=== PATIENT | female | born 1965 | race Caucasian/White ===

== ENCOUNTER 2020-08-17 08:09 | Emergency (ER) | payer OTHER ==
[~2020-08-17] VITALS: Ht 165.1 cm; Wt 104.5 kg
--- NOTE | 2020-08-17 08:27 | REP ---
INDICATION: CHEST PAIN. COMPARISON: Comparison chest x-ray 02 September 2008. TECHNIQUE: Portable upright AP chest radiograph. FINDINGS: The lungs are well inflated and free of infiltrate. Pleural angles are sharp. Heart size is normal. Pulmonary vasculature is not increased. The thoracic aorta is somewhat tortuous. IMPRESSION: No active disease. <Electronically signed by Nato Thorpe > 08/17/20 0891
[2020-08-17] MEDS ORDERED: IBUP80TA (09:10)
[2020-08-17] MEDS ORDERED: LOSA25TA14 (09:10)
[2020-08-17 09:16] LABS: BASO # 0.1 10^3/uL (0.0-0.2); EOS # 0.3 10^3/uL (0.0-0.5); EOS % 5.3 % (0.0-3.0); LYMPH # 1.4 10^3/uL (1.5-5.0); LYMPH % 21.7 % (24.0-44.0); MEAN CORPUSCULAR HEMOGLOBIN 29.5 pg (27.0-33.0); MEAN CORPUSCULAR HGB CONC 32.5 g/dl (32.0-36.5); MEAN CORPUSCULAR VOLUME 90.9 fl (80.0-96.0); MONO # 0.5 10^3/uL (0.0-0.8); MONO % 7.9 % (0.0-5.0); NEUTROPHILS # 3.9 10^3/uL (1.5-8.5); NEUTROPHILS % 62.8 % (36.0-66.0); PLATELET COUNT, AUTOMATED 182 10^3/uL (150-450); WHITE BLOOD COUNT 6.2 10^3/uL (4.0-10.0)
[2020-08-17 09:28] LABS: INR 0.92; PARTIAL THROMBOPLASTIN TIME 36.1 SECONDS (24.2-38.5); PROTHROMBIN TIME 12.6 SECONDS (12.5-14.3)
[2020-08-17 09:51] LABS: ALBUMIN 3.7 GM/DL (3.2-5.2); ALT/SGPT 34 U/L (12-78); BILIRUBIN,DIRECT 0.1 MG/DL (0.0-0.2); BILIRUBIN,TOTAL 0.7 MG/DL (0.2-1.0); BLOOD UREA NITROGEN 14 MG/DL (7-18); CALCIUM LEVEL 8.9 MG/DL (8.5-10.1); CARBON DIOXIDE LEVEL 26 MEQ/L (21-32); CHLORIDE LEVEL 108 MEQ/L (98-107); CK-MB VALUE MASS < 1.0 NG/ML (<3.6); CPK CREATINE PHOSPHOKINASE 216 U/L (26-192); CREATININE FOR GFR 0.89 MG/DL (0.55-1.30); FREE T4 0.82 NG/DL (0.76-1.46); GLOMERULAR FILTRATION RATE > 60.0 (>51); GLUCOSE, FASTING 91 MG/DL (70-100); LIPASE 92 U/L (73-393); MB/CK RELATIVE INDEX 0.46 (< OR =4); POTASSIUM SERUM 5.5 MEQ/L (3.5-5.1); SODIUM LEVEL 140 MEQ/L (136-145); TOTAL PROTEIN 7.4 GM/DL (6.4-8.2); TROPONIN I < 0.02 NG/ML (< 0.10)
[2020-08-17] MEDS ORDERED: ISOVUE-370 76% 100ML VIAL As Ordered ONE (13:08)
--- NOTE | 2020-08-17 13:45 | REP ---
INDICATION: chest pain. COMPARISON: Comparison CT study 31 July 2008.. TECHNIQUE: Contrast dose: 75 ML of Isovue [address] technique: Helical scanning is acquired and overlapping 1.5 mm and contiguous 3 mm axial images are reformatted. In addition, maximum intensity projection and multiplanar re-formation images are generated in sagittal and coronal imaging projections. FINDINGS: There is good opacification in the pulmonary arterial tree. There is no evidence of vessel cut off or filling defect to suggest pulmonary embolus. Homogeneous opacity is seen in the thoracic aorta. There is no evidence of aneurysm or dissection. Lung window settings demonstrate no evidence of infiltrate, atelectasis or mass. There is a granulomatous calcification in the right lower lobe. No significant pulmonary nodule is appreciated. There is no evidence of pleural effusion or pericardial effusion. No hilar or mediastinal mass or adenopathy is observed. Incidental note is made of a normal variant at the arch in that the left vertebral artery takes a direct aortic origin In the upper abdomen, normal adrenal glands are seen. There is a small subcentimeter cyst in the liver. The visualized upper abdominal structures are otherwise unremarkable. No bony destructive lesion is seen. IMPRESSION: No CT evidence of pulmonary embolus. No active cardiopulmonary disease. <Electronically signed by Nato Thorpe > 08/17/20 [id number]
[2020-08-17 14:45] LABS: CK-MB VALUE MASS < 1.0 NG/ML (<3.6); CPK CREATINE PHOSPHOKINASE 113 U/L (26-192); MB/CK RELATIVE INDEX 0.88 (< OR =4); TROPONIN I < 0.02 NG/ML (< 0.10)
[2020-08-17 15:00] VITALS: BP 161/92
[2020-08-17] MEDS ORDERED: SUCR1TA PO (15:14)
[2020-08-17] MEDS ORDERED: OMEP40CA97 PO (15:14)
--- NOTE | 2020-08-18 08:46 | ECGEPIP ---
[facility] - ED Test Date: 2020-08-17 Pat Name: ANDREW KABA Department: Room: - Gender: Female Unix Manager: : 1965 Requested By: MAYUR Vizcarra Order Number: [id number] Reading MD: Janine Chun Measurements Intervals [place] Rate: 74 P: 16 VT: 111 QRS: 1 QRSD: 84 T: 3 QT: 367 QTc: 409 Interpretive Statements SINUS RHYTHM WITH SHORT VT INTERVAL DECREASED RATE 09/02/15 Electronically Signed on 08-18-2020 8:46:08 EST by Janine Chun
--- NOTE | 2020-08-18 08:50 | ECGEPIP ---
[facility] - ED Test Date: 2020-08-17 Pat Name: ANDREW KABA Department: Room: - Gender: Female Transporter Radiology: : 1965 Requested By: MAYUR Vizcarra Order Number: [id number] Reading MD: Janine Chun Measurements Intervals [place] Rate: 70 P: 24 AR: 137 QRS: 7 QRSD: 90 T: 8 QT: 394 QTc: 427 Interpretive Statements SINUS RHYTHM SIMILAR 08/17/20 Electronically Signed on 08-18-2020 8:50:39 EST by Janine Chun
== END 2020-08-17 15:38 | disposition home or self-care (01) ==
LOC: M ED 08:09
DX: R07.89 Other chest pain (principal); I10 Essential (primary) hypertension; J30.89 Other allergic rhinitis
CPT/HCPCS: 71045; 71275; 80048; 80076; 82550; 82553; 83690; 84439; 84443; 84484; 85025; 85610; 85730; 93005; 93041; 94760; 99285; Q9967

== ENCOUNTER 2021-03-01 08:24 | Emergency (ER) | payer OTHER ==
[~2021-03-01] VITALS: Ht 165.1 cm; Wt 105.3 kg
[~2021-03-01 08:24] MED LIST: IBUP80TA; LOSA25TA14; OMEP40CA4 PO; SUCR1TA PO
--- NOTE | 2021-03-01 10:24 | REP ---
INDICATION: R/O DVT. COMPARISON: None. TECHNIQUE: Multiple ultrasonographic images of the deep venous structures of the right lower extremity were obtained from the inguinal ligament to the ankle. Venous compression techniques, color doppler imaging, and augmentation techniques were also obtained where appropriate. As per the ACR guidelines the anterior tibial vein can not be effectively evaluated. Only compression techniques in the calf on the peroneal and posterior tibial veins was attempted/performed. FINDINGS: There is no abnormal echogenic material seen within any of the visualized deep venous structures that would suggest acute thrombosis. Coaptation is unremarkable throughout. Doppler interrogation shows an expected response to respiratory variability and augmentation in the thigh. Compression techniques in the calf were unobtainable. The color flow images show what appears to be a normal vascular pattern throughout the thigh. IMPRESSION: There is no ultrasonographic evidence of deep venous thrombosis involving any of the visualized deep venous structures of the right lower extremity as described above. Due to technical parameters calf vein DVT can not be ruled out. <Electronically signed by Dany Alexander > 03/01/21 6596
[2021-03-01 11:04] VITALS: BP 136/91
== END 2021-03-01 11:18 | disposition home or self-care (01) ==
LOC: M ED 08:24
DX: M25.561 Pain in right knee (principal); M79.661 Pain in right lower leg; I10 Essential (primary) hypertension; K21.9 Gastro-esophageal reflux disease without esophagitis; R93.89 Abnormal findings on diagnostic imaging of other specified body structures

== ENCOUNTER 2021-03-09 12:28 | Day surgery (SDC) | payer OTHER ==
[~2021-03-09] VITALS: Ht 165.1 cm; Wt 105.6 kg
[~2021-03-09 12:28] MED LIST changes: +ACETAMINOPHEN *IV* 1,000 MG IV ONE; +LR 1,000 ML IV ONE
[2021-03-09 13:21] LABS: HEMATOCRIT 43.4 % (36.0-47.0); HEMOGLOBIN 14.2 g/dl (12.0-15.5); MEAN CORPUSCULAR HEMOGLOBIN 29.5 pg (27.0-33.0); MEAN CORPUSCULAR HGB CONC 32.7 g/dl (32.0-36.5); PLATELET COUNT, AUTOMATED 190 10^3/uL (150-450); RED BLOOD COUNT 4.82 10^6/uL (4.00-5.40); WHITE BLOOD COUNT 6.3 10^3/uL (4.0-10.0)
[2021-03-09 13:46] LABS: ALBUMIN 4.2 GM/DL (3.2-5.2); ALT/SGPT 38 U/L (12-78); BLOOD UREA NITROGEN 10 MG/DL (7-18); CALCIUM LEVEL 9.6 MG/DL (8.5-10.1); CARBON DIOXIDE LEVEL 28 MEQ/L (21-32); CHLORIDE LEVEL 108 MEQ/L (98-107); CREATININE FOR GFR 0.87 MG/DL (0.55-1.30); GLOMERULAR FILTRATION RATE > 60.0 (>51); GLUCOSE, FASTING 87 MG/DL (70-100); POTASSIUM SERUM 4.4 MEQ/L (3.5-5.1); SODIUM LEVEL 140 MEQ/L (136-145)
[2021-03-09] MEDS ORDERED: LIDOCAINE 2% 100MG/5ML SDV (FOR ANES.) As Ordered ONE (14:28)
[2021-03-09] MEDS ORDERED: KETOROLAC 60MG 2ML VIAL As Ordered ONE (14:28)
[2021-03-09] MEDS ORDERED: METOCLOPRAMIDE INJ 10MG/2ML VIAL (J2765 PER 1) As Ordered ONE (14:28)
[2021-03-09] MEDS ORDERED: fentaNYL 100 MCG/2 ML INJECTION (J3010) As Ordered ONE ×3 (14:28→16:27)
[2021-03-09] MEDS ORDERED: propofoL 200 MG/20 ML VIAL As Ordered ONE (14:28)
[2021-03-09] MEDS ORDERED: MIDAZOLAM INJ 2MG/2ML VIAL (J2250 PER 1MG) As Ordered ONE (14:28)
[2021-03-09] MEDS ORDERED: dexameTHASONE 4 MG/ML 1ML VIAL (J1100 PER 1MG) As Ordered ONE (14:28)
[2021-03-09] MEDS ORDERED: ONDANSETRON 4MG/2ML VIAL As Ordered ONE (14:28)
[2021-03-09] MEDS ORDERED: SILVER NITRATE APPLICATOR As Ordered ONE (14:42)
[2021-03-09] MEDS ORDERED: LIDOCAINE 1% SDV 30ML VIAL As Ordered ONE (14:42)
--- NOTE | 2021-03-09 16:03 | ROOPDOC ---
[facility] Report Of Operation Report of Operation DATE OF PROCEDURE: 03/09/21 PREPROCEDURE DIAGNOSES: abnormal uterine bleeding, vulvar pruritis POSTPROCEDURE DIAGNOSES: abnormal uterine bleeding, cervical polyps, vulvar puritis PROCEDURE PERFORMED: diagnostic hysteroscopy, dilation and curettage, cervical polypectomy, vulvar biopsy SURGEON: Obie Rawls DO MAIL HANDLERS SUPERVISOR: none ANESTHESIA: LMA ESTIMATED BLOOD LOSS: Approximately 40 mL. COMPLICATIONS: none REMARKS: none FINDINGS: hysteroscopy performed revealed scarred cavity, small endometrial polyps were removed gently with curette, vulva had lacy appearance and biopsy was taken at approx 7 o clock with 4mm punch SPECIMENS REMOVED: vulvar biopsy, endometrial curettings PROCEDURE NOTE: The risks, benefits, and alternatives of the procedure were discussed and written consent obtained. The patient was taken to the OR and anesthesia performed. She was positioned in low lithotomy with her arms out. The vagina and perineum were prepped and draped in a sterile fashion. The bladder was drained. A final time out was performed. A speculum was placed and the anterior lip of the cervix grasped with a single tooth tenaculum. The cervix was dilated to 16F with hanks dilators. Hysteroscopy was performed with the myosure scope. The uterine cavity was circumfrentially scarred. The scope was removed and small polyps were noted near the external cervical os. Endometrial curettings obtained and the polyps gently removed with the curette. The polyp bed required a figure of 8 with 0-vicryl and monsels for hemostasis. Silver nitrate was used for hemostasis at the tenaculum sites. The area of the vulva at 7 o clock was identified and a 4mm punch biopsy obtained. The defect was secured with o-vicryl. The patient tolerated the procedure well. There were no complications. The sponge, lap, and needle counts were correct. OBIE RAWLS DO Mar 09, 2021 16:03
[2021-03-09] MEDS: fentaNYL 100 MCG/2 ML INJECTION (J3010) IV PRN ×5 (16:11→16:40)
[2021-03-09] MEDS ORDERED: ONDANSETRON 4MG/2ML VIAL IV PRN (16:35)
[2021-03-09] MEDS ORDERED: METOCLOPRAMIDE INJ 10MG/2ML VIAL (J2765 PER 1) IV PRN (16:35)
[2021-03-09] MEDS ORDERED: MEPERIDINE INJ 25 MG/ML VIAL (J2175) IV PRN (16:35)
[2021-03-09] MEDS ORDERED: LR 1,000 ML IV SCH (16:35)
[2021-03-09] MEDS ORDERED: oxyCODONE 5MG TAB PO PRN ×2 (16:35→16:40)
[2021-03-09 18:05] VITALS: BP 151/88
[2021-03-09] MEDS ORDERED: ACETAMINOPHEN 500 MG TAB PO SCH (22:00)
[2021-03-09] MEDS ORDERED: IBUPROFEN 800 MG TAB PO SCH (22:00)
== END 2021-03-09 18:09 | disposition home or self-care (01) ==
LOC: M SDC 12:28
PROVIDERS: ATTEND Obstetrics & Gynecology
DX: N84.0 Polyp of corpus uteri (principal); L29.2 Pruritus vulvae; I10 Essential (primary) hypertension; K21.9 Gastro-esophageal reflux disease without esophagitis; G43.909 Migraine, unspecified, not intractable, without status migrainosus; N76.0 Acute vaginitis; M79.604 Pain in right leg; G47.39 Other sleep apnea; E66.9 Obesity, unspecified; Z68.38 Body mass index [BMI] 38.0-38.9, adult; Z79.899 Other long term (current) drug therapy
CPT/HCPCS: 36415; 56605; 58558; 80053; 81025; 85027; 86850; 86900; 86901; 88305; J1100; J1885; J2250; J2405; J2765; J3010

== ENCOUNTER 2021-04-02 15:55 | Emergency (ER) | payer OTHER ==
[~2021-04-02] VITALS: Ht 165.1 cm; Wt 104.5 kg
[2021-04-02 15:55] VITALS: BP 167/99
[~2021-04-02 15:55] MED LIST changes: -ACETAMINOPHEN *IV* 1,000 MG IV ONE; -LR 1,000 ML IV ONE
--- NOTE | 2021-04-02 16:52 | REP ---
INDICATION: fall COMPARISON: None TECHNIQUE: Five views FINDINGS: The compartments are symmetric and well maintained. There is no acute fracture, dislocation, or subluxation IMPRESSION: Within normal limits. <Electronically signed by Dany Alexander > 04/02/21 1997
[2021-04-02] MEDS ORDERED: NORCO 5/325MG TABLET (BULK FOR ED) PO ONE (21:10)
[2021-04-02] MEDS ORDERED: HYDR-3713 PO (21:21)
== END 2021-04-02 22:20 | disposition home or self-care (01) ==
LOC: M ED 15:55
DX: M23.91 Unspecified internal derangement of right knee (principal); I10 Essential (primary) hypertension; K21.9 Gastro-esophageal reflux disease without esophagitis; Z79.899 Other long term (current) drug therapy

== ENCOUNTER → 2021-04-16 | Outpatient (CLI) | payer OTHER ==
[~2021-04-16] MED LIST changes: +HYDR-3713 PO
--- NOTE | 2021-04-16 15:47 | REP ---
INDICATION: RT KNEE PAIN. COMPARISON: None. TECHNIQUE: Sagittal spin-echo proton density, T2 STIR and T2 FLASH. Coronal spin-echo proton density and fat suppressed proton density. Axial fat suppressed proton density. FINDINGS: The anterior and posterior horns of the lateral meniscus are within normal limits. There is grade 1 signal change seen in the periphery of the posterior horn of the medial meniscus. The anterior horn is unremarkable. The anterior and posterior cruciate ligaments are intact. The quadriceps and patellar tendons are intact. The medial and lateral collateral ligaments are intact. The medial and lateral patellar retinacula are intact. There is advanced thinning and irregularity of the patellar articular cartilage with more mild cartilaginous thinning involving the trochlear groove and both medial and lateral compartments. There is no significant joint effusion. There is no Mace's cyst. Seen in the subchondral marrow of the medial patellar facet there is 7 mm sized focus of T2 hyper signal. 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 There is a focus of patellar subchondral edema as described above likely secondary to repeated micro trauma. <Electronically signed by Dany Alexander > 04/16/21 1820
== END ==
LOC: M PLAIMG 13:01
PROVIDERS: ATTEND Family Medicine
DX: M22.41 Chondromalacia patellae, right knee (principal)

== ENCOUNTER 2021-05-10 11:04 | Day surgery (SDC) | payer OTHER ==
[~2021-05-10] VITALS: Ht 165.1 cm; Wt 104.3 kg
[~2021-05-10 11:04] MED LIST changes: +NS 1,000 ML IV ONE
--- OUTSIDE RECORDS SUMMARY | 2021-05-10 11:14 | CCD | Continuity of Care Document ---
Author Author Joan [facility] Organization Unknown Address [address], [address] [place] [address] Phone [phone] Care Team Providers Care Resource Director Name Role Phone Brien Almodovar AUTM [phone] Obie Barros AUTM [phone] Isidoro Magana M.D. AUTM [phone] Problems Active Problems Provider Date Essential hypertension Ciara Burnett D.O. Onset: 3 Social History Type Date Description Comments Sex Unknown ETOH Use 3 A Month Tobacco Use Start: Unknown Patient has never smoked Allergies, Adverse Reactions, Alerts Description No Known Drug Allergies Medications Active Medications SIG Qnty Indications Ordering Provide r Date Suprep Bowel Prep Kit 17.5-3.13-1.6GM/177ML Solution take per doctor's bowel prep instructions. 354ml Z12.1 1 Itz Bolanos MD 03/30/[address] take 4 tabs by mouth prior to procedure per instructions. 4tabs Z12.11 Itz Bolanos MD 03/30/2021 Losartan Potassium 25mg Tablets 1 by mouth every day Unknown Ibuprofen 800mg Tablets prn Unknown Preservision Areds 2 Areds 2 Capsu les Daily Unknown Immunizations Description No Information Available Vital Signs Date Vital Result Comment 03/30/2021 8:55am BP Systolic 138 mmHg BP Diastolic 88 mmHg Height 65 inches 5'5" Weight 230.00 lb BMI (Body Mass Index) 38.3 kg/m2 [place] Body Weight 125 lb Weight 104.328 kg BSA (Body Surface Area) 2.10 m2 10/26/2012 2:36pm BP Systolic 130 mmHg BP Diastolic 70 mmHg Height 65 inches 5'5" [place] Body Weight 125 lb Results Description No Information Available Procedures Description No Information Available Medical Devices Description No Information Available Encounters Description No Information Available Assessments Date Code Description Provider 03/30/2021 Z12.11 Encounter for screening for ernie gnant neoplasm of colon Camila LouisYUNI 03/30/2021 Z86.010 Personal history of colonic poly ps Camila CoreasYUNI colunga 03/30/2021 Z80.0 Family history of malignant neop lasm of digestive organs Camila Rangel YUNI Louis Plan of Treatment 03/30/2021 - Camila CoreasdantenilamYUNI* Z12.11 Encounter for screening for malignant neoplasm of colon * Z86.010 Personal history of colonic polyps * Z80.0 Family history of malignant neoplasm of digestive organs * * New Medication:* Suprep Bowel Prep Kit 17.5-3.13-1.6 GM/177ML * Dulcolax 5 mg * New Orders:* Colonoscopy, Ordered: 03/30/21 * Comments:* Will arrange for colonoscopy. Reviewed risks and benefits of the procedure, as well as other options, with the patient. Bowel prep procedure was discussed with patient, as well as risks and side effects associated with the bowel prep. Patient verbalized understanding of all of the above and is in agreement to proceed. Patient will seek medical attention for any acute changes. Will monitor. * Follow up:* As scheduled, sooner if needed. Functional Status Description No Information Available Mental Status Description No Information Available Referrals Refer to Reason for Referral Status Appt Date Mau Kelly M.D. COLO SCREENING 1 NEW 01/26 T O 07/25, 3 EST 01/26/21 TO 01/26/22 Scheduled 03/30/2021 [facility] [address], [place] [id number] [phone]
--- OUTSIDE RECORDS SUMMARY | 2021-05-10 11:14 | CCD | Continuity of Care Document ---
Author Author Joan BOOKER M.D. Organization Unknown Address [address], [place] [address] Phone [phone] Care Team Providers Care Capability Lead Name Role Phone Dany Julien M.D Unavailable Problems Active Problems Provider Date Allergic rhinitis due to house dust mite Martín Booker M.D. Onset: 06/13/2019 Note: 4+ reaction to dust mites on intra dermal test completed in 2016 Allergic rhinitis due to animal dander O nset: 08/01/2016 Note: 2+ reaction to cat dander on intra dermal test completed in 2017. Essential hypertension Martín Booker M.D. Onset: 11/2018 Social History Type Date Description Comments Sex Unknown Tobacco Use Reviewed: 08/26/20 Patient has never smoked Smoking Status Reviewed: 08/26/20 Patient has never smoked Allergies, Adverse Reactions, Alerts Description No Known Drug Allergies Medications Active Medications SIG Qnty Indications Ordering Provide r Date Loratadine 10mg Tablets take 1 tablet (10 mg) by oral route once daily for 90 days Unknown 12/01/2016 Ibuprofen 800mg Tablets Ta ke as needed Mark Coello DO Losartan Potassium 25mg Tablets Take 1 tablet once daily Isidoro Magana MD Clotrimazole 1% Cream Apply t Camila Lee Fluticasone Propionate 50mcg/Act Suspension spray 2 sprays (100 mcg) in each nostril by intranasal route once daily in the evening Unknown Immunizations Description No Information Available Vital Signs Date Vital Result Comment 08/26/2020 2:14pm Weight 230.00 lb Height 65 inches 5'5" Heart Rate 79 /min Respiratory Rate 18 /min BP Systolic 136 mmHg BP Diastolic 87 mmHg BMI (Body Mass Index) 38.3 kg/m2 06/13/2019 1:08pm Height 65 inches 5'5" Heart Rate 93 /min Respiratory Rate 18 /min BP Systolic 122 mmHg BP Diastolic 82 mmHg Results Description No Information Available Procedures Date Code Description Status 04/07/2021 41686 Allergy Antigens Single Or Multi ple Completed 03/26/2021 86626 Allergy Antigens Single Or Multi ple Completed 10/08/2020 87732 Allergy Antigens Single Or Multi ple Completed Medical Devices Description No Information Available Encounters Description No Information Available Assessments Date Code Description Provider 04/07/2021 J30.81 Allergic rhinitis due to animal (cat) (dog) hair and dander Martín Booker M.D. 04/07/2021 J30.89 Other allergic rhinitis Martín Booker M.D. Plan of Treatment Future Appointment(s):* 08/26/2021 11:00 am - Martín Booker M.D. at Main Office 08/26/2020 - Martín Booker M.D.* J30.89 Allergic rhinitis due to dust mites.* Recommendations:* Effective allergen avoidance measures were reviewed and recommended. The patient should continue on maintenance allergen immunotherapy as per protocol. The risks and benefits associated with allergen IT were reviewed and discussed. If her rhinitis symptoms become more persistent she may consider to restart the Flonase nasal spray which should be used on a consistent, daily basis to be effective. She may take oral antihistamine as needed for itching and/or sneezing and on days she gets her allergy injections. * J30.81 Allergic rhinitis due to animal (cat) hair and dander* Recommendations: * Effective allergen avoidance measures reviewed and recommended. See additional recommendations above. * All * Follow up:* 12 months. Sooner if needed. Functional Status Description No Information Available Mental Status Description No Information Available Referrals Description No Information Available
--- OUTSIDE RECORDS SUMMARY | 2021-05-10 11:14 | CCD | Continuity of Care Document ---
Author Author Joan GARZA Organization Unknown Address [address] [place] [address] [place] [address] Phone [phone] Care Team Providers Care Trailer Tank Truck Driver Name Role Phone Blaine Patterson MD AUTM Unavailable [facility] AUTM [phone] Problems Description No Information Available Social History Type Date Description Comments Sex Unknown Allergies and adverse reactions Description No Information Available Medications Description No Information Available Immunizations Description No Information Available Vital Signs Description No Information Available Results Description No Information Available Procedures Description No Information Available Medical Devices Description No Information Available Encounters Description No Information Available Assessments Date Code Description Provider 04/22/2021 Z20.828 Contact with and (watt spected) exposure to other viral communicable diseases Jose Carlos Quevedo Plan of Treatment No Information Available Functional Status Description No Information Available Mental Status Description No Information Available Referrals Refer to Reason for Referral Status Appt Date Julio Garza PA Created [id number] [place] [address] [phone]
--- OUTSIDE RECORDS SUMMARY | 2021-05-10 11:14 | CCD | Continuity of Care Document ---
Author Author Joan BOOKER M.D. Organization Unknown Address [address], [place] [address] Phone [phone] Care Team Providers Care Environmental Health Inspector Name Role Phone Dany Julien M.D Unavailable Problems Active Problems Provider Date Allergic rhinitis due to house dust mite Martín Booker M.D. Onset: 06/13/2019 Note: 4+ reaction to dust mites on intra dermal test completed in 2016 Allergic rhinitis due to animal dander O nset: 08/01/2016 Note: 2+ reaction to cat dander on intra dermal test completed in 2016. Essential hypertension Martín Booker M.D. Onset: 11/2018 [...] Information Available Procedures Date Code Description Status 03/26/2021 29116 Allergy Antigens Single Or Multi ple Completed 10/08/2020 84879 Allergy Antigens Single Or Multi ple Completed Medical Devices Description No Information Available Encounters Description No Information Available Assessments Date Code Description Provider 03/26/2021 J30.81 Allergic rhinitis due to animal (cat) (dog) hair and dander Martín Booker M.D. 03/26/2021 J30.89 Other allergic rhinitis Martín Booker M.D. [...]
--- OUTSIDE RECORDS SUMMARY | 2021-05-10 11:14 | CCD | Continuity of Care Document ---
Author Author oJan GARZA Organization Unknown Address [address] [place] [address] [place] [address] Phone [phone] Care Team Providers Care Program Director Scouting Name Role Phone Blaine Patterson MD AUTM Unavailable [facility] AUTM [phone] Problems Description No Information Available Social History [...] Status Appt Date Julio Garza PA Created [id number] [place] [address] [phone]
--- OUTSIDE RECORDS SUMMARY | 2021-05-10 11:14 | CCD | Continuity of Care Document ---
Author Author Joan GARZA Organization Unknown Address [address] [place] [address] [place] [address] Phone [phone] Care Team Providers Care Citrus Peeler Name Role Phone Blaine Patterson MD AUTM Unavailable [facility] AUTM [phone] Problems Description No Information Available Social History [...] Status Appt Date Julio Garza PA Created [id number] [place] [address] [phone]
--- OUTSIDE RECORDS SUMMARY | 2021-05-10 11:14 | CCD ---
Author Author [facility] Organization [facility] Address Unknown Phone Unavailable Care Team Providers Care Insurance Claims Clerk Name Role Phone Maring, Bala PA Unavailable Unavailable Maring, Bala PA Unavailable Unavailable Maring, Bala PA Unavailable Unavailable Maring, Bala PA Unavailable Unavailable Maring, Bala PA Unavailable Unavailable Maring, Bala PA Unavailable Unavailable Maring, Bala PA Unavailable Unavailable Maring, Bala PA Unavailable Unavailable Maring, Bala PA Unavailable Unavailable Maring, Bala PA Unavailable Unavailable Maring, Baal PA Unavailable Unavailable Maring, Bala PA Unavailable Unavailable Maring, Bala PA Unavailable Unavailable Maring, Bala PA Unavailable Unavailable Maring, Bala PA Unavailable Unavailable Maring, Bala PA Unavailable Unavailable ISRA BOOKER MD Unavailable Unavailable ISRA BOOKER MD Unavailable Unavailable ISRA BOOKER MD Unavailable Unavailable ISRA BOOKER MD Unavailable Unavailable ISRA BOOKER MD Unavailable Unavailable ISRA BOOKER MD Unavailable Unavailable ISRA BOOKER MD Unavailable Unavailable ISRA BOOKER MD Unavailable Unavailable ISRA BOOKER MD Unavailable Unavailable ISRA BOOKER MD Unavailable Unavailable ISRA BOOKER MD Unavailable Unavailable ISRA BOOKER MD Unavailable Unavailable ISRA BOOKER MD Unavailable Unavailable ISRA BOOKER MD Unavailable Unavailable ISRA BOOKER MD Unavailable Unavailable ISRA BOOKER MD Unavailable Unavailable ISRA BOOKER MD Unavailable Unavailable CHROSTOWSKIISRA MD Unavailable Unavailable CHROSTOWSKIISRA MD Unavailable Unavailable CHROSTOWSKIOTISISRA MD Unavailable Unavailable CHROSTOWSKIOTISISRA MD Unavailable Unavailable CHROSTOWSKI, ISRA MD Unavailable Unavailable CHROSTOWSKIOTISISRA MD Unavailable Unavailable CHROSTOWSKI, ISRA MD Unavailable Unavailable CHROSTOWSKI, ISRA MD Unavailable Unavailable CHROSTOWSKI, ISRA MD Unavailable Unavailable CHROSTOWSKI, ISRA MD Unavailable Unavailable CHROSTOWSKI, ISRA MD Unavailable Unavailable CHROSTOWSKI, ISRA MD Unavailable Unavailable CHROSTOWSKI, ISRA MD Unavailable Unavailable CHROSTOWSKI, ISRA MD Unavailable Unavailable CHROSTOWSKI, ISRA MD Unavailable Unavailable CHROSTOWSKI, ISRA MD Unavailable Unavailable CHROSTOWSKI, ISRA MD Unavailable Unavailable CHROSTOWSKI, ISRA MD Unavailable Unavailable CHROSTOWSKI, ISRA MD Unavailable Unavailable CHROSTOWSKI, ISRA MD Unavailable Unavailable CHROSTOWSKI, ISRA MD Unavailable Unavailable CHROSTOWSKI, ISRA MD Unavailable Unavailable Hai GARCIA Unavailable Unavailable Blaine Lzoano Unavailable [phone] Blaine Lozano Unavailable [phone] MartaBlaine Unavailable [phone] MartaEdilmaon Unavailable [phone] Marta Blaine Unavailable [phone] MartaEdilmaon Unavailable [phone] Lei Addison MD Unavailable Unavailable Lei Addison MD Unavailable Unavailable Lei Addison MD Unavailable Unavailable Lei Addison MD Unavailable Unavailable Lei Addison MD Unavailable Unavailable Lei Addison MD Unavailable Unavailable Lei Addison MD Unavailable Unavailable Lei Addison MD Unavailable Unavailable Lei Addison MD Unavailable Unavailable Lei Addison MD Unavailable Unavailable Lei Addison MD Unavailable Unavailable Lei Addison MD Unavailable Unavailable Lei Addison MD Unavailable Unavailable Lei Addison MD Unavailable Unavailable Lei Addison MD Unavailable Unavailable Lei Addison MD Unavailable Unavailable Lei Addison MD Unavailable Unavailable Lei Addison MD Unavailable Unavailable Lei Addison MD Unavailable Unavailable Lei Addison MD Unavailable Unavailable Lei Addison MD Unavailable Unavailable Lei Addison MD Unavailable Unavailable Lei Addison MD Unavailable Unavailable Lie Addisno MD Unavailable Unavailable Lei Addison MD Unavailable Unavailable Heidy Alba MD Unavailable Unavailable Heidy Alba MD Unavailable Unavailable Heidy Alba MD Unavailable Unavailable Heidy Alba MD Unavailable Unavailable Heidy Alba MD Unavailable Unavailable SleHeidy covarrubias MD Unavailable Unavailable Heidy Alba MD Unavailable Unavailable Heidy Alba MD Unavailable Unavailable Heidy Alba MD Unavailable Unavailable Heidy Alba MD Unavailable Unavailable Heidy Alab MD Unavailable Unavailable Heidy Alba MD Unavailable Unavailable Heidy Alba MD Unavailable Unavailable Heidy Alba MD Unavailable Unavailable Heidy Alba MD Unavailable Unavailable Heidy Alba MD Unavailable Unavailable Heidy Alba MD Unavailable Unavailable Heidy Alba MD Unavailable Unavailable Heidy Alba MD Unavailable Unavailable Heidy Alba MD Unavailable Unavailable Heidy Alba MD Unavailable Unavailable Heidy Alba MD Unavailable Unavailable Heidy Alba MD Unavailable Unavailable Heidy Alba MD Unavailable Unavailable Heidy Alba MD Unavailable Unavailable Heidy Alba MD Unavailable Unavailable Heidy Alba MD Unavailable Unavailable Heidy Alba MD Unavailable Unavailable Heidy Alba MD Unavailable Unavailable Heidy Alba MD Unavailable Unavailable Heidy Alba MD Unavailable Unavailable Heidy Alba MD Unavailable Unavailable Heidy Alba MD Unavailable Unavailable Heidy Alba MD Unavailable Unavailable Heidy Alba MD Unavailable Unavailable Heidy Alba MD Unavailable Unavailable Heidy Alba MD Unavailable Unavailable Heidy Alba MD Unavailable Unavailable Heidy Alba MD Unavailable Unavailable Heidy Alba MD Unavailable Unavailable Heidy Alba MD Unavailable Unavailable Heidy Alba MD Unavailable Unavailable Heidy Alba MD Unavailable Unavailable Heidy Alba MD Unavailable Unavailable Slezka, Vojtech MD Unavailable Unavailable Slezka, Vojtech MD Unavailable Unavailable Slezka, Vojtech MD Unavailable Unavailable Slezka, Vojtech MD Unavailable Unavailable Slezka, Vojtech MD Unavailable Unavailable Slezka, Vojtech MD Unavailable Unavailable Slezka, Vojtech MD Unavailable Unavailable Slezka, Vojtech MD Unavailable Unavailable Slezka, Vojtech MD Unavailable Unavailable Slezka, Vojtech MD Unavailable Unavailable Slezka, Vojtech MD Unavailable Unavailable Slezka, Vojtech MD Unavailable Unavailable Slezka, Vojtech MD Unavailable Unavailable Slezka, Vojtech MD Unavailable Unavailable Re-disclosure Warning The records that you are about to access may contain information from federally-assisted alcohol or drug abuse programs. If such information is present, then the following federally mandated warning applies: This information has been disclosed to you from records protected by federal confidentiality rules (42 CFR part 2). The federal rules prohibit you from making any further disclosure of this information unless further disclosure is expressly permitted by the written consent of the person to whom it pertains or as otherwise permitted by 42 CFR part 2. A general authorization for the release of medical or other information is NOT sufficient for this purpose. The Federal rules restrict any use of the information to criminally investigate or prosecute any alcohol or drug abuse patient.The records that you are about to access may contain highly sensitive health information, the redisclosure of which is protected by Article 27-F of the [facility] Public Health law. If you continue you may have access to information: Regarding HIV / AIDS; Provided by facilities licensed or operated by the [facility] Office of Mental Health; or Provided by the [facility] Office for People With Developmental Disabilities. If such information is present, then the following [facility] mandated warning applies: This information has been disclosed to you from confidential records which are protected by state law. State law prohibits you from making any further disclosure of this information without the specific written consent of the person to whom it pertains, or as otherwise permitted by law. Any unauthorized further disclosure in violation of state law may result in a fine or care home sentence or both. A general authorization for the release of medical or other information is NOT sufficient authorization for further disc losure. Encounters Encounter Providers Location Date Indications Data Source(s ) Outpatient Attender: Bala OMALLEY 04/20/20 07:27:12 AM EDT - 04/20/2021 08:06:00 AM EDT [facility] ([facility] ) Outpatient Attender: Heiyd NOeferrer: EVER [email or web address] 01/20/2021 12:00:00 AM EDT - 01/20/2021 10:03:55 AM EDT [facility] Outpatient Attender: Cherrie Addison MDAttender: Blaine castellon 09/09/2020 12:09:40 PM EST - 09/09/2020 01:05:24 PM EST [facility] ( [facility]) Outpatient Attender: ISRA BOOKER MD Main Office 08/26/2020 01:15:00 PM EST [facility] ([facility] Immunizations Vaccine Date Status Description Data Source(s) COVID-19 VACCINE Pfizer 08/19/2020 12:00:00 AM EST completed [facility] Vaccine Series Complete: NOThis Data was Submitted to [facility]. Medications Medication Brand Name Start Date Product Form Dose Route Admi nistrative Instructions Pharmacy Instructions Status Indications Reaction Description Data Source(s) Bisacodyl 5 MG Delayed Release Oral Tablet [Dulcolax] Dulcol ax 03/30/2021 12:00:00 AM EDT ORAL active M EDENT ([facility], ) Suprep Bowel Prep Kit Suprep Bowel Prep Kit 03/30/2021 12:00:00 AM EDT active [facility] ([facility], ) doxycycline hyclate 100 MG Oral Tablet doxycycline ( BRA-TABS) 100 MG tablet doxycycline (VIBRA-TABS) 100 MG tablet 01/19/2021 12:00:00 AM EDT active [facility] Metronidazole 500 MG Oral Tablet metroNIDAZOLE (FLAGYL ) 500 MG tablet metroNIDAZOLE (FLAGYL) 500 MG tablet 01/19/2021 12:00:00 AM EDT [facility] Fluconazole 150 MG Oral Tablet fluconazole (DIFLUCAN) 150 MG tablet fluconazole (DIFLUCAN) 150 MG tablet 01/19/2021 12:00:00 AM EDT active [facility] Estrogens, Conjugated (CARE HOME) 0.625 MG/ML Vaginal Cream [Premarin] Premarin vaginal cream Premarin vaginal cream 01/19/2021 12:00:00 AM EDT active [facility] Insurance Providers Payer name Policy type / Coverage type Policy ID Covered republican ID Covered republican's relationship to johnson Policy Johnson Plan Information [id number] Michelle [id number] Spouse [id number] [employer] [place] [id number] [id number] EAST HUMANA [id number] HU2 [id number] U [id number] [id number] U [id number] Self [id number] / [id number] Spouse [id number] EAST [employer] CO UNAVAILABLE 01 UNAVAILABLE EAST [employer] - PHYSICIAN CO UNAVAILABLE 01 UNAVAILABLE [employer] [id number] Commercial Insurance Co. [id number] [employer] [id number] Commercial Insurance Co. [id number] EAST HUMANA - O/P [id number] 01 [id number] HEALTHNET/ AD O [id number] P [id number] HUMANA EAST REG O [id number] S [id number] HU[employer] [place]AST REG O [id number] P [id number] Problems, Conditions, and Diagnoses Code Display Name Description Problem Type Effective Dates Data Source(s) R07.9 Chest pain, unspecified Chest pain, unspecified Diagno sis 01/20/2021 08:47:50 AM EDT [facility] Surgeries/Procedures Procedure Description Date Indications Data Source(s) PREPJ& ALLERGEN IMMUNOTHERAPY 1/OB/GYN ANTIGEN 04/07/2021 12:00:00 AM EDT [facility] PREPJ& ALLERGEN IMMUNOTHERAPY 1/OB/GYN ANTIGEN 03/26/2021 12:00:00 AM EDT [facility] ([facility]) POCT AMB EKG <td>POCT AMB EKG</td><td>Rou mirtha</td><td>01/20/2021 9:50 AM EDT</td><td> Chest pain, unspecified type</td><td> </td> 01/20/2021 09:50:00 AM EDT Chest pain, unspecified type [facility] Chest pain, unspecified type PREPJ& ALLERGEN IMMUNOTHERAPY 1/OB/GYN ANTIGEN 10/08/2020 12:00:00 AM EDT [facility] ([facility]) TROPONIN QUANTITATIVE <td>TROPONIN I</td><td>Routine</td><td>08/17/2020</td><td></td><td> </td> 08/17/2020 12:00:00 AM [facility] BLOOD COUNT COMPLETE AUTO&AUTO DIFRNTL WBC COUNT <td>C BC AND DIFFERENTIAL</td><td>Routine</td><td>08/17/2020</td><td></td><td> </td> 08/17/2020 12:00:00 AM [facility] PROTHROMBIN TIME <td>POCT INR</td><td>Routine</td><td>08/17/2020</td><td></td><td> </td> 08/17/2020 12:00:00 AM [facility] THYROID STIMULATING HORMONE TSH <td>TSH</td><td>Routine</td><td>08/17/2020</td><td></td><td> </td> 08/17/2020 12:00:00 AM [facility] HEPATIC FUNCTION PANEL <td>HEPATIC FUNCTION PANEL</td><td>Routine</td><td>08/17/2020</td><td></td><td> </td> 08/17/2020 12:00:00 AM EST [facility] BASIC METABOLIC PANEL CALCIUM TOTAL <td>BASIC METABOLI C PANEL</td><td>Routine</td><td>08/17/2020</td><td></td><td> </td> 08/17/2020 12:00:00 AM EST [facility] PREPJ& ALLERGEN IMMUNOTHERAPY 1/OB/GYN ANTIGEN 03/23/2020 12:00:00 AM EDT [facility] ([facility]) Results ID Date Data Source [id number] 04/22/2021 12:00:00 AM EDT [facility] Name Value Range Interpretation Code Description Data Mago rce(s) Supporting Document(s) SARS-CoV2 Rapid Antigen Negative [facility] lab [facility] ordered by [facility] and reported by [facility]. ID Date Data Source [id number] 03/04/2021 10:12:00 AM EDT [facility] Name Value Range Interpretation Code Description Data Mago rce(s) Supporting Document(s) SARS coronavirus 2 RNA Not Detected [facility] This lab was ordered by [facility] and reported by [facility]. Procedure Social History Code Duration Value Status Description Data Source(s ) Alcohol intake 01/20/2021 12:00:00 AM EDT Current drinker of al cohol (finding) completed Current drinker of alcohol (finding) [facility] Tobacco use and exposure 01/20/2021 12:00:00 AM EDT Never used co mpleted Never used [facility] Smoking 01/20/2021 12:00:00 AM EDT Never smoker completed Never s moker [facility] Smoking 08/26/2020 12:00:00 AM EST Patient has never smoked co mpleted Patient has never smoked [facility] ([facility] ) Vital Signs ID Date Data Source UNK Name Value Range Interpretation Code Description Data Source(s) Body height 65 [in_i] 65 [in_i] [facility] ([facility]) 5'5" Body mass index (BMI) [Ratio] 38.3 kg/m2 38.3 k g/m2 [facility] Body weight 230.00 [lb_av] 230.00 [lb_av] [facility] T ([facility]) [place] body weight 125 [lb_av] 125 [lb_av] [facility] ([facility]) Body weight 104.328 kg 104.328 kg [facility] ([facility]) Body surface area Derived from formula 2.10 m2 2.10 m2 [facility] ([facility]) Systolic blood pressure 138 mm[Hg] 138 mm[Hg] M [facility] ([facility]) Diastolic blood pressure 88 mm[Hg] 88 mm[Hg] [facility] ([facility]) Systolic blood pressure 150 mm[Hg] 150 mm[Hg] [facility] Diastolic blood pressure 100 mm[Hg] 100 mm[Hg] [facility] Heart rate 74 /min 74 /min Health system Body height 165.1 cm 165.1 cm [facility] Oxygen saturation in Arterial blood by Pulse oximetry 99 % 99 % [facility] Body weight 230.00 [lb_av] 230.00 [lb_av] [facility] ([facility]) Body height 65 [in_i] 65 [in_i] [facility] ([facility] 5'5" Heart rate 79 /min 79 /min [facility] ([facility] Respiratory rate 18 /min 18 /min [facility] ( [facility]) Systolic blood pressure 136 mm[Hg] 136 mm[Hg] M [facility] ([facility]) Diastolic blood pressure 87 mm[Hg] 87 mm[Hg] [facility] ([facility] Body mass index (BMI) [Ratio] 38.3 kg/m2 38.3 k g/m2 [facility] ([facility] Patient Treatment Plan of Care Planned Activity Planned Date Details Description Data Source (s) doxycycline hyclate 100 MG Oral Tablet 01/19/2021 12:00:00 AM EDT [facility] Estrogens, Conjugated ([facility]ARE [facility]) 0.625 MG/ML Vaginal Cream [Premarin] 01/19/2021 12:00:00 AM EDT [facility] Fluconazole 150 MG Oral Tablet 01/19/2021 12:00:00 AM EDT [facility] Metronidazole 500 MG Oral Tablet 01/19/2021 12:00:00 AM EDT [facility]
--- OUTSIDE RECORDS SUMMARY | 2021-05-10 11:14 | CCD | Continuity of Care Document ---
Author Author Joan GARZA Organization Unknown Address [address] [place] [address] [place] [address] Phone [phone] Care Team Providers Care Railroad Surveyor Name Role Phone Blaine Patterson MD AUTM Unavailable [facility] AUTM [phone] Problems Description No Information Available Social History [...] Status Appt Date Julio Garza PA Created [id number] [place] [address] [phone]
--- OUTSIDE RECORDS SUMMARY | 2021-05-10 11:14 | CCD | Continuity of Care Document ---
Author Author Joan [facility] Organization Unknown Address [address], [address] [place] [address] Phone [phone] Care Team Providers Care Teller Manager Name Role Phone Brien Almodovar AUTM [phone] Obie Barros AUTM [phone] Isidoro Magana M.D. AUTM [phone] Problems Active Problems Provider Date Essential hypertension [...] lb BMI (Body Mass Index) 38.3 kg/m2 [place] Body Weight 125 lb Weight 104.328 kg BSA (Body Surface Area) 2.10 m2 10/26/2012 2:36pm BP Systolic 130 mmHg BP Diastolic 70 mmHg Height 65 inches 5'5" [place] Body Weight 125 lb Results Description No [...] 3 EST 01/26/21 TO 01/26/22 Scheduled 03/30/2021 [facility] [address], [place] [id number] [phone]
[2021-05-10] MEDS ORDERED: propofoL 200 MG/20 ML VIAL As Ordered ONE (11:48)
[2021-05-10] MEDS ORDERED: LIDOCAINE 2% 100MG/5ML SDV (FOR ANES.) As Ordered ONE (11:48)
--- NOTE | 2021-05-10 12:24 | ROOR ---
Patient Name: Joan Garcia Procedure Date: 05/10/2021 11:59 AM Date of : 1965 Age: 55 Room: [facility] Gender: Female Note Status: Finalized Procedure: Colonoscopy Indications: Screening patient at increased risk: Family history of colorectal cancer in multiple 1st-degree relatives Providers: Mau Kelly MD Referring MD: Isidoro Magana Md Requesting Provider: Medicines: Monitored Anesthesia Care Complications: No immediate complications. Procedure: Pre-Anesthesia Assessment: - Prior to the procedure, a History and Physical was performed, and patient medications and allergies were reviewed. The patient is competent. The risks and benefits of the procedure and the sedation options and risks were discussed with the patient. All questions were answered and informed consent was obtained. Patient identification and proposed procedure were verified by the physician, the nurse and the anesthesiologist in the procedure room. Mental Status Examination: alert and oriented. Airway Examination: normal oropharyngeal airway and neck mobility. Respiratory Examination: clear to auscultation. CV Examination: normal. Prophylactic Antibiotics: The patient does not require prophylactic antibiotics. Prior Anticoagulants: The patient has taken no previous anticoagulant or antiplatelet agents. ASA Grade Assessment: II - A patient with mild systemic disease. After reviewing the risks and benefits, the patient was deemed in satisfactory condition to undergo the procedure. The anesthesia plan was to use monitored anesthesia care (MAC). Immediately prior to administration of medications, the patient was re-assessed for adequacy to receive sedatives. The heart rate, respiratory rate, oxygen saturations, blood pressure, adequacy of pulmonary ventilation, and response to care were monitored throughout the procedure. The physical status of the patient was re-assessed after the procedure. The Colonoscope was introduced through the anus and advanced to the terminal ileum, with identification of the appendiceal orifice and IC valve. The colonoscopy was performed without difficulty. The patient tolerated the procedure well. The quality of the bowel preparation was good. The terminal ileum, ileocecal valve, appendiceal orifice, and rectum were photographed. Scope insertion time was 2 minutes. Scope withdrawal time was 8 minutes. The total duration of the procedure was 12 minutes. Findings: The perianal and digital rectal examinations were normal. The terminal ileum appeared normal. A 8 mm polyp was found in the descending colon. The polyp was sessile. The polyp was removed with a cold snare. Resection and retrieval were complete. Verification of patient identification for the specimen was done by the physician and nurse using the patient's name, date and medical record number. Estimated blood loss was minimal. Non-bleeding external and internal hemorrhoids were found during retroflexion. The hemorrhoids were medium-sized. Impression: - The examined portion of the ileum was normal. - One 8 mm polyp in the descending colon, removed with a cold snare. Resected and retrieved. - Non-bleeding external and internal hemorrhoids. Recommendation: - Patient has a contact number available for emergencies. The signs and symptoms of potential delayed complications were discussed with the patient. Return to normal activities tomorrow. Written discharge instructions were provided to the patient. - High fiber diet. - Continue present medications. - Await pathology results. - Repeat colonoscopy in 5 years for surveillance based on pathology results and due to family history of colon cancer. - Telephone GI clinic for pathology results in 2 weeks. - Return to primary care physician. Procedure Code(s): --- Professional --- 62969, Colonoscopy, flexible; with removal of tumor(s), polyp(s), or other lesion(s) by snare technique Diagnosis Code(s): --- Professional --- Z80.0, Family history of malignant neoplasm of digestive organs K64.8, Other hemorrhoids K63.5, Polyp of colon CPT copyright 2019 [employer]. All rights reserved. The codes documented in this report are preliminary and upon death surveys coder review may be revised to meet current compliance requirements. Mau Kelly MD Mau Kelly MD 05/10/2021 12:24:04 PM Electronically signed by Mau Kelly MD Number of Addenda: 0 Note Initiated On: 05/10/2021 11:59 AM Estimated Blood Loss: Estimated blood loss was minimal.
[2021-05-10 12:40] VITALS: BP 137/85
== END 2021-05-10 13:12 | disposition home or self-care (01) ==
LOC: M OPP 11:04
PROVIDERS: ATTEND Internal Medicine Gastroenterology
DX: Z12.11 Encounter for screening for malignant neoplasm of colon (principal); D12.4 Benign neoplasm of descending colon; K64.8 Other hemorrhoids; I10 Essential (primary) hypertension; G47.30 Sleep apnea, unspecified; Z79.899 Other long term (current) drug therapy

== ENCOUNTER → 2021-07-15 | Outpatient (REF) ==
[~2021-07-15] MED LIST changes: -NS 1,000 ML IV ONE
== END ==
LOC: M LABSMTC 10:11
PROVIDERS: ATTEND Pediatrics
DX: Z11.52 Encounter for screening for COVID-19 (principal)

== ENCOUNTER → 2024-01-15 | Outpatient (CLI) | payer OTHER ==
[~2024-01-15] MED LIST changes: +LOSA25TA13; -LOSA25TA14
== END ==
LOC: M WHC 12:47
PROVIDERS: ATTEND Family Medicine
DX: Z12.31 Encounter for screening mammogram for malignant neoplasm of breast (principal)

== ENCOUNTER → 2024-02-06 | Outpatient (REF) | payer OTHER ==
[2024-02-08 14:27] LABS: Candida species NOT DETECTED (NOT DETECTED); Gardnerella vaginalis DETECTED (NOT DETECTED); Trichamonas vaginalis NOT DETECTED (NOT DETECTED)
== END ==
LOC: M SMT 16:56
PROVIDERS: ATTEND Specialist
DX: N90.89 Other specified noninflammatory disorders of vulva and perineum (principal)

== ENCOUNTER → 2024-06-03 | Outpatient (REF) | payer OTHER ==
[2024-06-03 11:18] LABS: APPEARANCE, URINE CLEAR (CLEAR); BACTERIA, URINE AUTO NEGATIVE (NEGATIVE); BILIRUBIN, URINE AUTO NEGATIVE (NEGATIVE); BLOOD, URINE BLOOD 1+ (NEGATIVE); COLOR, URINE YELLOW (YELLOW); GLUCOSE, URINE (UA) AUTO NEGATIVE (NEGATIVE); KETONE, URINE AUTO NEGATIVE (NEGATIVE); LEUKOCYTE ESTERASE, URINE AUTO NEGATIVE (NEGATIVE); MUCUS, URINE SMALL (NEGATIVE); NITRITE, URINE AUTO NEGATIVE (NEGATIVE); PROTEIN, URINE AUTO NEGATIVE (NEGATIVE); RBC, URINE AUTO 0 /HPF (0-3); SPECIFIC GRAVITY URINE AUTO 1.021 (1.002-1.035); SQUAMOUS EPITHELIAL CELL UR AU 2 /HPF (0-6); UROBILINOGEN, URINE AUTO 0.2 mg/dL (0.0-2.0); WBC, URINE AUTO 0 /HPF (0-3)
== END ==
LOC: M SMT 10:17
PROVIDERS: ATTEND Specialist
DX: N39.0 Urinary tract infection, site not specified (principal)

== ENCOUNTER 2024-08-28 07:51 | Day surgery (SDC) | payer OTHER ==
[~2024-08-28] VITALS: Ht 165.1 cm; Wt 111.8 kg
[~2024-08-28 07:51] MED LIST changes: +IBUP1TAB7 PO; +LOSA50TA28 PO; +NEXI20CA PO
[2024-08-28] MEDS ORDERED: fentaNYL 100 MCG/2 ML INJECTION As Ordered ONE (08:46)
[2024-08-28 09:02] VITALS: TEMP 97.2
[2024-08-28 09:26] VITALS: BP 148/86; O2SAT 98
== END 2024-08-28 09:27 | disposition home or self-care (01) ==
LOC: M OPP 07:51
PROVIDERS: ATTEND Internal Medicine Gastroenterology
DX: K44.9 Diaphragmatic hernia without obstruction or gangrene (principal); K22.89 Other specified disease of esophagus; R12 Heartburn; R14.0 Abdominal distension (gaseous); R07.89 Other chest pain; G47.30 Sleep apnea, unspecified; Z79.899 Other long term (current) drug therapy
CPT/HCPCS: 43239; 88305; J3010